=== PATIENT | female | born 1960 | race Two or more races ===

== ENCOUNTER 2021-10-29 09:45 | Inpatient (IN) | payer MEDICAID, OTHER ==
[~2021-10-29] VITALS: Ht 160 cm; Wt 82.4 kg
[2021-10-29] MEDS ORDERED: SODIUM CHLORIDE 0.9% 1,000 ML IVB ONE (10:45)
[2021-10-29] MEDS ORDERED: ONDANSETRON HCL 4 MG/2 ML VIAL IV ONE (10:45)
[2021-10-29] MEDS ORDERED: MORPHINE SULFATE 4 MG/ML SYR/VIAL IV ONE (10:45)
[2021-10-29 11:26] LABS: Basophils # (auto) 0.1 10 ^3/uL (0-0.2); Basophils % (auto) 0.9 % (0.0-2.0); Eosinophils # (auto) 0.2 10 ^3/uL (0-0.8); Hematocrit 48.6 % (36.0-46.0); Hemoglobin 15.6 g/dL (12.2-16.2); Lymphocytes # (auto) 2.5 10 ^3/uL (0.4-5.4); Lymphocytes % (auto) 24.8 % (10.0-50.0); Mean Corpuscular Hemoglobin 27.7 pg (28.0-32.0); Mean Corpuscular Volume 86.6 fL (80.0-100.0); Monocytes % (auto) 10.2 % (0.0-12.0); Neutrophils # (auto) 6.2 10 ^3/uL (1.6-8.6); Neutrophils % (auto) 62.1 % (37.0-80.0); Nucleated Red Blood Cells % 0.1 %; Red Blood Cells 5.61 10^6/uL (4.0-5.20); Red Cell Distribution Width 16.4 % (11.8-14.3)
[2021-10-29 11:46] LABS: Albumin 3.1 g/dL (3.4-5.0); Calcium 8.8 mg/dL (8.5-10.1); Potassium 3.6 mmol/L (3.5-5.1)
[2021-10-29 11:55] LABS: BUN/Creatinine Ratio 14.6; Bilirubin, Total 8.5 mg/dL (0.2-1.0); Total Protein 6.6 g/dL (6.4-8.2)
[2021-10-29 13:27] LABS: INR 1.06 (0.9-1.15)
[2021-10-29 13:56] LABS: Urine Bacteria MANY /hpf (None Seen); Urine Blood 1+ /uL (Negative); Urine Mucus FEW (None Seen); Urine WBC 65 /hpf (0 - 5); Urine WBC Clumps PRESENT /hpf (None Seen)
[2021-10-29 14:41] LABS: Acetaminophen < 2.0 ug/mL (10-30); Salicylate < 1.7 mg/dL (2.8-20.0)
[2021-10-29] MEDS ORDERED: NITROGLYCERIN 0.4 MG SL TAB SL PRN (15:00)
[2021-10-29] MEDS ORDERED: MORPHINE SULFATE INJ 2 MG/ml SYRG IV PRN ×2 (15:00)
[2021-10-29] MEDS ORDERED: ONDANSETRON HCL 4 MG/2 ML VIAL IV PRN (15:00)
[2021-10-29] MEDS ORDERED: HYDROcodone-ACET 5/325MG TAB PO PRN (15:00)
[2021-10-29] MEDS ORDERED: ACETAMINOPHEN 325 MG TAB PO PRN (15:00)
[2021-10-29] MEDS: SODIUM CHLORIDE 0.9% 1,000 ML IV SCH (17:53)
[2021-10-29] MEDS: cefTRIAXone 1GM/50ML D5W 50 ML IV SCH (17:53)
[2021-10-29 18:00] VITALS: BP 102/57
[2021-10-29 19:00] VITALS: BP 105/59
[2021-10-29 21:00] VITALS: BP 108/72
[2021-10-29 23:00] VITALS: BP 99/48
[2021-10-30] VITALS (8 sets, daily range): BP systolic 98–116; BP diastolic 49–71
[2021-10-30 05:02] LABS: Basophils # (auto) 0.1 10 ^3/uL (0-0.2); Basophils % (auto) 0.6 % (0.0-2.0); Eosinophils # (auto) 0.2 10 ^3/uL (0-0.8); Hematocrit 39.4 % (36.0-46.0); Hemoglobin 13.4 g/dL (12.2-16.2); Lymphocytes # (auto) 2.6 10 ^3/uL (0.4-5.4); Lymphocytes % (auto) 28.9 % (10.0-50.0); Mean Corpuscular Hemoglobin 29.2 pg (28.0-32.0); Mean Corpuscular Hgb Conc. 34.1 g/dL (32.0-36.0); Mean Corpuscular Volume 85.8 fL (80.0-100.0); Monocytes # (auto) 0.9 10 ^3/uL (0-1.3); Monocytes % (auto) 10.5 % (0.0-12.0); Neutrophils # (auto) 5.2 10 ^3/uL (1.6-8.6); Red Cell Distribution Width 16.2 % (11.8-14.3)
[2021-10-30 05:20] LABS: Albumin 2.6 g/dL (3.4-5.0); Calcium 8.4 mg/dL (8.5-10.1); Potassium 3.8 mmol/L (3.5-5.1)
[2021-10-30 05:24] LABS: Total Protein 5.3 g/dL (6.4-8.2)
[2021-10-30] MEDS: SODIUM CHLORIDE 0.9% 1,000 ML IV SCH ×3 (06:01→16:07)
[2021-10-30] MEDS ORDERED: cefTRIAXone 1GM/50ML D5W 50 ML IV SCH (09:00)
[2021-10-30] MEDS: cefTRIAXone 1GM/50ML D5W 50 ML IV SCH (09:58)
[2021-10-30] MEDS: ENOXAPARIN SOD 40 MG/0.4 ML SYRINGE SC SCH (11:07)
[2021-10-30 11:46] LABS: Albumin 2.5 g/dL (3.4-5.0); Calcium 8.3 mg/dL (8.5-10.1); Potassium 3.8 mmol/L (3.5-5.1)
[2021-10-30 12:04] LABS: BUN/Creatinine Ratio 15.7; Total Protein 5.4 g/dL (6.4-8.2)
[2021-10-30 13:31] LABS: Hepatitis A Ab IgM Negative; Hepatitis B Core IgM Negative
[2021-10-30 13:40] LABS: Hepatitis C Antibody Positive (Negative)
[2021-10-31] VITALS (8 sets, daily range): BP systolic 93–118; BP diastolic 48–69
[2021-10-31] MEDS: SODIUM CHLORIDE 0.9% 1,000 ML IV SCH ×3 (00:20→18:40)
[2021-10-31 05:11] LABS: Albumin 2.6 g/dL (3.4-5.0); Calcium 8.3 mg/dL (8.5-10.1); Potassium 3.9 mmol/L (3.5-5.1)
[2021-10-31 05:20] LABS: BUN/Creatinine Ratio 10.5; Bilirubin, Total 8.4 mg/dL (0.2-1.0); Total Protein 5.5 g/dL (6.4-8.2)
[2021-10-31] MEDS: cefTRIAXone 1GM/50ML D5W 50 ML IV SCH (08:43)
[2021-10-31] MEDS: ENOXAPARIN SOD 40 MG/0.4 ML SYRINGE SC SCH (08:44)
[2021-10-31] MEDS ORDERED: diazePAM 5 MG TAB PO ONE (11:35)
[2021-11-01] MEDS: SODIUM CHLORIDE 0.9% 1,000 ML IV SCH ×3 (01:20→19:02)
[2021-11-01 05:00] VITALS: BP 126/74
[2021-11-01 05:03] LABS: Albumin 2.5 g/dL (3.4-5.0); Potassium 3.7 mmol/L (3.5-5.1)
[2021-11-01 05:14] LABS: Bilirubin, Total 8.4 mg/dL (0.2-1.0); Total Protein 5.2 g/dL (6.4-8.2)
[2021-11-01 05:16] LABS: BUN/Creatinine Ratio 11.3
[2021-11-01 09:00] VITALS: BP 133/79
[2021-11-01] MEDS: cefTRIAXone 1GM/50ML D5W 50 ML IV SCH (10:27)
[2021-11-01] MEDS: ENOXAPARIN SOD 40 MG/0.4 ML SYRINGE SC SCH (10:28)
[2021-11-01 13:00] VITALS: BP_SYST 121; BP_SYST 87; BP_DIAS 52; BP_DIAS 75
[2021-11-01 16:40] VITALS: BP 129/70
[2021-11-01 22:00] VITALS: BP 132/85
[2021-11-02] MEDS: SODIUM CHLORIDE 0.9% 1,000 ML IV SCH ×2 (02:20→10:40)
[2021-11-02 04:59] VITALS: BP 123/80
[2021-11-02 05:27] LABS: Albumin 2.5 g/dL (3.4-5.0); BUN/Creatinine Ratio 12.7; Calcium 8.1 mg/dL (8.5-10.1); Potassium 3.9 mmol/L (3.5-5.1)
[2021-11-02 05:39] LABS: Total Protein 5.5 g/dL (6.4-8.2)
[2021-11-02 05:49] LABS: Bilirubin, Total 8.2 mg/dL (0.2-1.0)
[2021-11-02 09:00] VITALS: BP 95/59
[2021-11-02] MEDS: ENOXAPARIN SOD 40 MG/0.4 ML SYRINGE SC SCH (09:36)
[2021-11-02] MEDS: cefTRIAXone 1GM/50ML D5W 50 ML IV SCH (09:37)
[2021-11-02] MEDS ORDERED: CEPH-509 PO (10:43)
[2021-11-02 13:09] VITALS: BP 112/67
== END 2021-11-02 14:28 | disposition home or self-care (01) | DRG 463 ==
LOC: ER 09:45 → TELE 15:05 → DOU IN ICU 17:05 → TELE-CENTR 10-31 05:59
PROVIDERS: ADMIT Internal Medicine; ATTEND Internal Medicine
DX: N39.0 Urinary tract infection, site not specified (principal); B18.2 Chronic viral hepatitis C; E78.5 Hyperlipidemia, unspecified; R74.8 Abnormal levels of other serum enzymes; R79.89 Other specified abnormal findings of blood chemistry; Z20.822 Contact with and (suspected) exposure to COVID-19; Z98.51 Tubal ligation status; F10.20 Alcohol dependence, uncomplicated
CPT/HCPCS: 36415; 74176; 74181; 76705; 80053; 80074; 80329; 81001; 82105; 82140; 82150; 82378; 82728; 82962; 83690; 85025; 85610; 86038; 86703; 87081; 87086; 96361; 96374; G0378; J0696; J2405

== ENCOUNTER 2024-12-16 21:26 | Emergency (ER) | payer MEDICAID ==
[~2024-12-16] VITALS: Ht 160 cm; Wt 79.3 kg
[~2024-12-16 21:26] MED LIST: CEPH-509 PO
[2024-12-16 22:03] LABS: Hematocrit 47.2 % (36.0-46.0); Hemoglobin 15.9 g/dL (12.2-16.2); Mean Corpuscular Hemoglobin 29.2 pg (28.0-32.0); Mean Corpuscular Volume 86.5 fL (80.0-100.0); Nucleated Red Blood Cells % 0.1 %
[2024-12-16 22:21] LABS: Alanine Aminotransferase 29 U/L (7-40); Albumin 4.4 g/dL (3.2-4.8); Anion Gap 7 (5-15); BUN/Creatinine Ratio 6.5 (10.0-20.0); Calcium 9.2 mg/dL (8.7-10.4); Carbon Dioxide 30 mmol/L (20-31); Chloride 105 mmol/L (98-107); Glucose 104 mg/dL (74-106); Lipase 33 U/L (12-53); Potassium 3.9 mmol/L (3.5-5.1); Sodium 142 mmol/L (136-145); Total Protein 6.9 g/dL (5.7-8.2)
[2024-12-16 22:22] LABS: Bilirubin, Total 0.9 mg/dL (0.2-1.0)
[2024-12-16 22:26] LABS: Alkaline Phosphatase 122 U/L (46-116); Blood Urea Nitrogen 7 mg/dL (9-23)
--- NOTE | 2024-12-16 22:37 | DVH ---
CHEST RADIOGRAPH Indication: N/V BODY ACHES, WEAK Technique: Single frontal view of the chest was obtained Comparison: None FINDINGS: Lines and Tubes: None Lungs: No focal consolidation. Pleura: No effusion. No pneumothorax. Cardiomediastinal contours: Unremarkable Bones: No acute osseous abnormality. IMPRESSION: 1. No acute cardiopulmonary disease.
[2024-12-16] MEDS: ONDANSETRON HCL 4 MG/2 ML VIAL IV ONE (23:16)
[2024-12-16 23:44] VITALS: PULSE 77; RESP 16; O2SAT 97
[2024-12-16] MEDS: SODIUM CHLORIDE 0.9% 1,000 ML IV ONE (23:46)
--- NOTE | 2024-12-17 | ED.PDOC ---
GI ASSESSMENT HPI Comments HPI: 64-year-old female came to ER for nausea. Patient states she has been having nausea and diarrhea for the past 1-1/2 weeks. Did also occasional episodes of vomiting and generalized body pains. Denies any acute abdominal pain. Denies any vomiting today. Vomiting was nonbilious nonbloody. Diarrhea is yellow in color. Denies any recent traveling. Positive sick contact. Patient was asked to provide us with a stool sample but she said she is unable to. She says she has a proximally three episodes of diarrhea per day. She only gets diarrhea when she eats. Initial Vitals BP: 141/81 HR: 57 RR: 18 O2 99 Temp: 97.8 Past Medical History: Denies Past Surgical History: Social History: Denies ETOH, smoking, and drug use. Medications: Allergies: HPI: Poor Historian. Past Medical History: Past Surgical History: REVIEW OF SYSTEMS: CONSTITUTIONAL: Denies acute: fever, diaphoresis, chills, generalized weakness. HEAD: Denies acute: headache, photophobia Eyes: Denies acute: Double vision, vision loss, eye pain, eye discharge. EARS: Denies acute: tinnitus, hearing loss, ear discharge, ear pain, THROAT: Denies acute: sore throat, swelling, difficulty swallowing , pain with swallowing, change in voice. NECK: Denies acute: neck pain, neck swelling, stiff neck. HEART: Denies acute : chest pain, palpitations, LUNGS: Denies acute: SOB, wheezing, cough, hemoptysis ABDOMEN: Denies acute: abdominal pain, Vomiting, melena , hematemesis, hematochezia SKIN: Denies acute: rash, redness, lesions, itchiness. EXTREMITIES: Denies acute: calf pain, numbness, tingling, weakness, denies pain in extremity. Denies acute: Low back pain. Neuro: Denies acute: focal neurological deficit, motor or sensory focal neurological deficit, tremors, seizure like activity, confusion, dizziness, change in mental status, loss of bowel or bladder function, cauda equina like symptoms. : Denies acute: dysuria, hematuria, flank pain, increase in urinary frequency. PSYCH: Denies acute: hallucination, suicidal ideation, homicidal ideation. FEMALE: Denies acute: abnormal vaginal bleeding, foul odor, unusual discharge. PHYSICAL EXAM: General: ----no----acute distress, awake and alert. Head: normocephalic, atraumatic. Neck: supple, trachea is midline, no swelling. Throat: Normal phonation. Eyes:, no erythema, no purulent discharge, no proptosis, no icterus. Heart: regular rate, regular rhythm, no significant murmur appreciated. Lungs: no apparent respiratory distress, Able to speak in full sentences. No wheezing, no rhonchi, no crackles. No stridors Clear to auscultation bilaterally. Abdomen: non tender to palpation, non distended, soft, no guarding, no rebound, + bowel sounds. Neuro: Awake, Alert, oriented to name, self, situation, follows commands GCS=15. Speech is normal. Skin: no petechia, no purpura, no cyanosis, non-pale, not jaundice. Lower extremities: --no - Pitting edema no deformity, no focal swelling, no calf TTP. Makes eye contact. moves all four extremities. Face: no apparent facial droop. Ambulating in the ED independently. . ED COURSE: DISCLAIMER: This medical document was created using an electronic medical record system with voice recognition software and computerized dictation system. Although this document has been carefully reviewed, there might still be some phonetic and typographical errors. Occasional wrong-word or "sound-alike" substitutions may have occurred due to the inherent limitations of voice recognition software. These areas are purely typographical due to imperfections of the software programs and do not reflect any compromise in the patient's medical care. Please read the chart carefully and recognize, using context, where these substitutions have occurred. 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 Family History Family History: Reviewed,noncontributory to illness, No family hx of Cancer, No family hx of DM, No family hx of Heart keri, No family hx of HTN, No family hx ofKidney keri, No family hx of Liver keri, No family hx of Lung keri, No family hx of Stroke Social History Smoker: Cigarettes Alcohol: Denies ETOH Use Drugs: Denies Drug Use Lives In: Home X-Ray, Labs, Meds, VS Vital Signs Date Time Temp Pulse Resp B/P (MAP) Pulse Ox O2 Delivery O2 Flow Rate FiO2 12/17/24 02:05 98.4 74 16 131/77 (95) 97 98.4 12/16/24 23:44 77 16 128/72 (90) 97 12/16/24 23:44 77 16 97 Room Air* 0 21 12/16/24 21:26 97.5 87 18 148/81 99 97.5 Lab Test 12/16/24 23:55 12/16/24 22:52 12/16/24 21:44 Range/Units SARS-CoV-2 Antigen (Rapid) Negative NEGATIVE Troponin I High Sensitivity < 3 L < 3 L </=34 ng/L White Blood Count 6.2 4.4-10.8 10^3/uL Red Blood Count 5.46 H 4.0-5.20 10^6/uL Hemoglobin 15.9 12.2-16.2 g/dL Hematocrit 47.2 H 36.0-46.0 % Mean Corpuscular Volume 86.5 80.0-100.0 fL Mean Corpuscular Hemoglobin 29.2 28.0-32.0 pg Mean Corpuscular Hemoglobin Concent 33.7 32.0-36.0 g/dL Red Cell Distribution Width 14.4 H 11.8-14.3 % Platelet Count 307 140-450 10^3/uL Mean Platelet Volume 6.8 L 6.9-10.8 fL Neutrophils (%) (Auto) 45.7 37.0-80.0 % Lymphocytes (%) (Auto) 44.7 10.0-50.0 % Monocytes (%) (Auto) 8.0 0.0-12.0 % Eosinophils (%) (Auto) 1.0 0.0-7.0 % Basophils (%) (Auto) 0.6 0.0-2.0 % Neutrophils # (Auto) 2.8 1.6-8.6 10 ^3/uL Lymphocytes # (Auto) 2.8 0.4-5.4 10 ^3/uL Monocytes # (Auto) 0.5 0-1.3 10 ^3/uL Eosinophils # (Auto) 0.1 0-0.8 10 ^3/uL Basophils # (Auto) 0 0-0.2 10 ^3/uL Nucleated Red Blood Cells 0.1 % Sodium Level 142 136-145 mmol/L Potassium Level 3.9 3.5-5.1 mmol/L Chloride Level 105 98-107 mmol/L Carbon Dioxide Level 30 20-31 mmol/L Anion Gap 7 5-15 Blood Urea Nitrogen 7 L 9-23 mg/dL Creatinine 1.08 H 0.550-1.02 mg/dL Glomerular Filtration Rate Calc 58 >90 mL/min BUN/Creatinine Ratio 6.5 L 10.0-20.0 Serum Glucose 104 74-106 mg/dL Lactic Acid Level 1.6 0.4-2.0 mmol/L Calcium Level 9.2 8.7-10.4 mg/dL Total Bilirubin 0.9 0.2-1.0 mg/dL Aspartate Amino Transferase (AST) 24 13-40 U/L Alanine Aminotransferase (ALT) 29 7-40 U/L Alkaline Phosphatase 122 H 46-116 U/L Total Protein 6.9 5.7-8.2 g/dL Albumin 4.4 3.2-4.8 g/dL Lipase 33 12-53 U/L Current Medications Medications (Trade) Dose Ordered Sig/Mary Ellen Route Start Time Stop Time Status Last Admin Sodium Chloride 1,000 ml @ 1,000 mls/hr Q1H ONCE IV 12/16/24 21:45 12/16/24 22:44 DC 12/16/24 23:[address] [address] Ph: [phone] DIAGNOSTIC IMAGING Diagnostic Imaging Report : [id number] Signed PATIENT: ROME VERONICA ACCT: [id number] UNIT: [id number] : 1960 LOC: ER ROOM / BED: / AGE / SEX: 64 / F ADM STATUS: REG ER SERVICE 08 ORDERING PHYSICIAN: ROSA SUTTON DO PROCEDURE(s): CXRP - CHEST PORTABLE REASON: N/V BODY ACHES, WEAK ORDER NUMBER(s): [id number], ACCESSION NUMBER(s): [id number] CHEST RADIOGRAPH Indication: N/V BODY ACHES, WEAK Technique: Single frontal view of the chest was obtained Comparison: None FINDINGS: Lines and Tubes: None Lungs: No focal consolidation. Pleura: No effusion. No pneumothorax. Cardiomediastinal contours: Unremarkable Bones: No acute osseous abnormality. IMPRESSION: 1. No acute cardiopulmonary disease. ATED BY: FERNANDO MOFFETT Jr., DO DICTATED DATE/TIME: 12/16/242233 SIGNED BY: FERNANDO MOFFETT Jr., SIGNED DATE/TIME: 12/16/242233 CC: Time of 1ST Reevaluation: 03:05 Reevaluation 1ST: Left against medical advi Patient Education/Counseling: Other Family Education/Counseling: Other Comments Patient did not provide us with a stool sample or urine sample. Patient left against medical advice SEPSIS Sepsis Screen Date sepsis recognized/suspect: Dec 16, 2024 Time Sepsis recognized/suspect: 2125 Recent Procedure: No On Antibiotic Therapy: No Respiratory Rate >20: No Heart Rate >90: No Temp<36 C (96.8 F) or >38.3 C: No SBP <90 or MAP <65 mmHG: No New Acute Mental Status Change: No Is the patient on CPAP, BIPAP,: No Physician Orders Natural Resources Engineer (12/16/24 ) Urinalysis (12/16/24 21:32) Chest Portable (12/16/24 22:09) Electrocardigram (12/16/24 21:32) Clostridium Difficile Toxin (12/16/24 23:50) Ova & Parasite Exam (12/16/24 23:50) Stool Bacterial Culture (12/16/24 23:50) Stool Wbc (12/16/24 23:50) Vital Signs Date Time Temp Pulse Resp B/P (MAP) Pulse Ox O2 Delivery O2 Flow Rate FiO2 12/17/24 02:05 98.4 74 16 131/77 (95) 97 98.4 12/16/24 23:44 77 16 128/72 (90) 97 12/16/24 23:44 77 16 97 Room Air* 0 21 12/16/24 21:26 97.5 87 18 148/81 99 97.5 Laboratory Tests Test 12/16/24 21:44 Lactic Acid Level 1.6 mmol/L (0.4-2.0) White Blood Count 6.2 10^3/uL (4.4-10.8) Medications Medications Dose Ordered Sig/Mary Ellen Route Start Time Stop Time Status Last Admin Dose Admin Sodium Chloride 1,000 ml @ 1,000 mls/hr Q1H ONCE IV 12/16/24 21:45 12/16/24 22:44 DC 12/16/24 23:46 Departure 1 Departure Time of Disposition: 03:04 Impression: Primary Impression: Nausea vomiting and diarrhea Disposition: LEFT AGAINST MEDICAL ADVICE Additional Instructions: Left against medical advice Discharged With: Self I personally scribed for ROSA SUTTON DO ([email or web address]) on 12/17/24 at 00:00. Electronically submitted by Juan Hidalgo ([email or web address]). I personally scribed for ROSA SUTTON DO ([email or web address]) on 12/17/24 at 00:04. Electronically submitted by Juan Hidalgo ([email or web address]). ROSA SUTTON DO Dec 17, 2024 00:00
[2024-12-17 01:34] LABS: COVID19 ANTIGEN SOFIA FIA NEGATIVE (NEGATIVE)
[2024-12-17 02:05] VITALS: BP 131/77; PULSE 74; RESP 16; TEMP 98.4; O2SAT 97
[2024-12-17 04:55] LABS: Urine Protein, UAD Negative (Negative)
== END 2024-12-17 02:55 | disposition left against medical advice (07) ==
LOC: ER 21:26
DX: R11.2 Nausea with vomiting, unspecified (principal); R19.7 Diarrhea, unspecified; F17.210 Nicotine dependence, cigarettes, uncomplicated; E78.5 Hyperlipidemia, unspecified; Z79.899 Other long term (current) drug therapy; Z98.51 Tubal ligation status; Z98.890 Other specified postprocedural states; Z20.822 Contact with and (suspected) exposure to COVID-19
CPT/HCPCS: 36415; 71045; 80053; 81001; 83605; 83690; 84484; 85025; 87426; 96360; 99284; J7030